=== PATIENT | female | born 1960 | race Caucasian/White ===

== ENCOUNTER 2016-10-23 12:43 | Outpatient (CLI) | payer OTHER ==
--- NOTE | 2016-10-23 14:20 | DIAGNOSTIC IMAGING REPORT ---
PROCEDURE: US COMPLETE PELVIC W/TRANSVAG INDICATION: POST MENOPAUSAL BLEEDING TECHNIQUE: Transabdominal and endovaginal moctezuma scale and color Doppler sonographic images of the female pelvis were obtained. COMPARISON: None. FINDINGS: TRANSABDOMINAL SCANS: Normal kidneys. Splenomegaly (16.5 cm). The uterus not well visualized. TRANSVAGINAL SCANS: Uterus measures 9 x 3.9 x 5.6 cm. Myometrium is unremarkable. Endometrium measures 10.7 mm. Ovaries not visualized. No adnexal mass or free fluid the cul-de-sac. IMPRESSION: 1. Thickened endometrium (10.7 mm) in a postmenopausal patient. This may represent blood, hyperplasia or neoplastic change. Recommend tissue biopsy. 3. Ovaries not visualized, likely due to atrophic changes 3. Splenomegaly 4. Results discussed with Dr. Allen
--- NOTE | 2016-10-23 14:23 | DIAGNOSTIC IMAGING REPORT ---
PROCEDURE: XR KNEE 4 VIEWS - LEFT INDICATION: PAIN IN LEFT KNEE TECHNIQUE: Four views. COMPARISON: None. FINDINGS: There is a 4 mm linear osseous density adjacent to the medial femoral condyle. There is an area of sclerosis in the left distal femoral metaphysis (1.5 cm) consistent with old infarct. The rest the osseous structures and joint spaces are normal. IMPRESSION: 1. There is a 4 mm osseous density adjacent medial femoral condyle which suggest old medial collateral ligament injury. 2. Otherwise negative left knee.
== END 2016-10-23 23:00 | disposition home or self-care (01) ==
LOC: XR SRH 12:43 → US SRH 12:43
DX: M25.562 Pain in left knee (principal); M89.9 Disorder of bone, unspecified; R93.8 Abnormal findings on diagnostic imaging of other specified body structures; R16.1 Splenomegaly, not elsewhere classified; Z78.0 Asymptomatic menopausal state

== ENCOUNTER 2016-11-02 05:47 | Emergency (ER) | payer OTHER ==
--- NOTE | 2016-11-02 06:40 | ED MAR SUMMARY ---
..... Medication Administration Record [facility] [address], [place] [id number] Patient: RAMYA PARADA Christopher Visit ID: [id number] 56y, F Weight: 113.3 kg Height/Length: 69 in BMI: 36.9 ALLERGIES: NKDA
--- NOTE | 2016-11-02 06:40 | ED MED RECONCILIATION SUMMARY ---
Patient: RAMYA PARADA Medication Reconciliation Report [facility] VisitID: [id number] [address] [place] [address] 56y, F Registration Date/Time: 11/02/2016 Weight: 113.3 kg Height/Length: 69 in. BMI: 36.9 ALLERGIES: NKDA The patient's Home Medications are listed below: THE FOLLOWING MEDICATIONS NEED TO BE RECONCILED: Cyclobenzaprine HCl Oral 10 mg, 3x a day Imitrex Oral Percocet Oral, daily, takes 6 tabs The source(s) of the original Home Medication information: Not obtained. The following Medications were given to the patient in the Emergency Department: None. The following Medications were prescribed to the patient: None.
--- NOTE | 2016-11-02 06:40 | ED MED RECONCILIATION SUMMARY ---
Patient: RAMYA PARADA Medication Reconciliation Report [facility] VisitID: [id number] [address] [place] [address] 56y, F Registration Date/Time: 11/02/2016 Weight: 113.3 kg Height/Length: 69 in. BMI: 36.9 ALLERGIES: NKDA The patient's Home Medications are listed below: THE FOLLOWING MEDICATIONS NEED TO BE RECONCILED: Cyclobenzaprine HCl Oral 10 mg, 3x a day Imitrex Oral Percocet Oral, daily, takes 6 tabs The source(s) of the original Home Medication information: Not obtained. The following Medications were given to the patient in the Emergency Department: None. The following Medications were prescribed to the patient: None.
--- NOTE | 2016-11-02 06:40 | ED MAR SUMMARY ---
..... Medication Administration Record [facility] [address], [place] [id number] Patient: RAMYA PARADA Christopher Visit ID: [id number] 56y, F Weight: 113.3 kg Height/Length: 69 in BMI: 36.9 ALLERGIES: NKDA
--- NOTE | 2016-11-02 06:40 | ED NURSING NOTES ---
Clinical Report - Nurses [facility] [address] [place] [address] 11/02/2016 5:48 Patient: RAMYA PARADA TRIAGE Triage time 0555. Acuity: LEVEL 3. Chief Complaint: ANXIETY. Alert. --06: Alia Robles 06:00 11/02/16. BP: 154/117. HR: 110. RR: 28. O2 saturation: 97%. --06: Alia Robles. Weight: 113.3 kg. Height/Length: 69 inches. BMI: 36.9. --06:00 Alia Robles. Medications Cyclobenzaprine HCl Oral 10 mg, 3x a day. Imitrex Oral, as needed. Percocet Oral, daily (takes 6 tabs). --06:02 Alia Robles. Allergies NKDA. --06:02 Aila Robles. History Arrived by private vehicle. Historian: patient. Unaccompanied. Onset. (unknown). ( Pt arrives crying, unable to speak full sentences, facial muscles are twitching, lips dry and cracked, attempting to understand cause of distress). Treatment VENEER LAYER: None. --06:26 Alia Robles. PROBLEMS: Migraine Headache. Non-Hodgkin's lymphoma (clinical). --06:03 Alia Robles. Interventions ID band on patient. To treatment room. --06:26 Alia Robles. NURSING PROGRESS NOTES ( Pt unwilling to co operate with assessment or talking further, pt made comments about "not being able to go through that again" referring to cancer treatment, also that " is mean, he tells me I'm fat, he kicks me out of the house and I sleep in the truck, he lies" when asked about children pt sts "they won't talk to me, they all hate me", pt refusing blood work and sts "it was just done 2 weeks ago", pt asking to just leave, I explained to pt that I couldn't let her drive like this, so pt asked to call her , pt was given cordless phone in pt room, was called, pt sts to him "they won't let me leave, aren't you coming, and why are you so mean", pt handed over phone to RN, 's voice has no distress in it, he sts he left her at 1130pm yesterday to go to a car show, he met up with friends he hadn't seen in a while and so didn't come home until 430 this morning, she was gone and came home about 530am" he sts she "has had this before" and sts he will come and get her, Provider is ok for her to leave with a ride. Pt waiting in room until arrives). --06:33 Alia Robles. DISPOSITION / DISCHARGE Departure time: 0640. ( here, pt ambulatory with to car). --06:39 Alia Robles. Locked/Released at 11/02/2016 6:40 by Alia Robles,
--- NOTE | 2016-11-02 06:40 | ED NURSING NOTES ---
Clinical Report - Nurses [facility] [address] [place] [address] 11/02/2016 5:48 Patient: RAMYA PARADA TRIAGE Triage time 0555. Acuity: LEVEL 3. Chief Complaint: ANXIETY. Alert. --06: Alia Robles 06:00 11/02/16. BP: 154/117. HR: 110. RR: 28. O2 saturation: 97%. --06: Alia Robles. Weight: 113.3 kg. Height/Length: 69 inches. BMI: 36.9. --06:00 Alia Robles. Medications Cyclobenzaprine HCl Oral 10 mg, 3x a day. Imitrex Oral, as needed. Percocet Oral, daily (takes 6 tabs). --06:02 Alia Robles. Allergies NKDA. --06:02 Alia Robles. History Arrived by private vehicle. Historian: patient. Unaccompanied. Onset. (unknown). ( Pt arrives crying, unable to speak full sentences, facial muscles are twitching, lips dry and cracked, attempting to understand cause of distress). Treatment BUILDING WRECKER: None. --06:26 Alia Robles. PROBLEMS: Migraine Headache. Non-Hodgkin's lymphoma (clinical). --06:03 Alia Robles. Interventions ID band on patient. To treatment room. --06:26 Alia Robles. NURSING PROGRESS NOTES ( Pt unwilling to co operate with assessment or talking further, pt made comments about "not being able to go through that again" referring to cancer treatment, also that " is mean, he tells me I'm fat, he kicks me out of the house and I sleep in the truck, he lies" when asked about children pt sts "they won't talk to me, they all hate me", pt refusing blood work and sts "it was just done 2 weeks ago", pt asking to just leave, I explained to pt that I couldn't let her drive like this, so pt asked to call her , pt was given cordless phone in pt room, was called, pt sts to him "they won't let me leave, aren't you coming, and why are you so mean", pt handed over phone to RN, 's voice has no distress in it, he sts he left her at 1130pm yesterday to go to a car show, he met up with friends he hadn't seen in a while and so didn't come home until 430 this morning, she was gone and came home about 530am" he sts she "has had this before" and sts he will come and get her, Provider is ok for her to leave with a ride. Pt waiting in room until arrives). --06:33 Alia Robles. DISPOSITION / DISCHARGE Departure time: 0640. ( here, pt ambulatory with to car). --06:39 Alia Robles. Locked/Released at 11/02/2016 6:40 by Alia Robles,
== END 2016-11-02 06:40 | disposition home or self-care (01) ==
LOC: ED SRH 05:47
DX: Z53.21 Procedure and treatment not carried out due to patient leaving prior to being seen by health care provider (principal)

== ENCOUNTER 2016-11-08 20:57 | Inpatient (IN) | payer OTHER ==
[~2016-11-08] VITALS: Ht 175.3 cm; Wt 134.7 kg
--- NOTE | 2016-11-08 22:29 | DIAGNOSTIC IMAGING REPORT ---
PROCEDURE: CT HEAD WITHOUT CONTRAST INDICATION: MENTAL STATUS CHANGE TECHNIQUE: Noncontrast axial images with sagittal and coronal reformations. COMPARISON: None. FINDINGS: Sulci, ventricular system, and brain parenchyma are normal. No evidence of acute intracranial process. Visualized mastoids and sinuses are clear. IMPRESSION: 1. Negative non-enhanced head CT. 2. Findings discussed with Dr. Moon at 10:27 p.m., [facility] Time
--- NOTE | 2016-11-08 22:31 | DIAGNOSTIC IMAGING REPORT ---
PROCEDURE: XR CHEST 1 VIEW INDICATION: SHORTNESS OF BREATH TECHNIQUE: Portable AP view 09:30 p.m. COMPARISON: None. FINDINGS: The patient is rotated. Poor inspiration but lungs are clear. Heart and mediastinum are normal. Mild levoscoliosis and moderate degenerative changes. IMPRESSION: 1. Poor inspiration but otherwise negative chest
--- NOTE | 2016-11-08 22:34 | ED CLINICAL REPORT ---
Clinical Report - Physicians/Mid Levels [facility] [address] [place] [address] 11/08/2016 20:57 Patient: RAMYA PARADA Time Seen: 21:00. Arrived- By ambulance. Historian- patient and EMS personnel. History limited by altered mental status and intoxication. Physical Exam limited by altered mental status and intoxication. HISTORY OF PRESENT ILLNESS Chief Complaint: CHANGED MENTAL STATUS. This started today and is still present. It was gradual in onset and has been waxing/waning. The patient is described as having decreased responsiveness. (Patient brought into ER by EMS. EMS report patient called for patient, EMS were not given a clear story. Patient has history of self harm, ingestion and Suicidal ideation. EMS were led to believe patient may have ingested her narcotics and benzodiazepine medications. Patient arrived into ED moaning and yelling out. Patient refuses to answer questions. RN's attempting to assist into gown and patient began to swinging at RN's and puling off lines, "You wont fucking take my clothes off". Patient yelling, " No one will help me!!"). No history of chronic dementia. She has had alcohol consumption recently (possible). History of recent drug use possible benzos. Dextro stick was not low prior to arrival. No weakness, numbness or recent fall. She has had difficulty walking. Usually is alert and oriented X3 and usually has normal mobility. Similar symptoms previously: Recent medical care: The patient was seen recently by a health care provider. ( Pt was here about 1 week ago for "anxiety", but left before being seen by an ED provider). REVIEW OF SYSTEMS No fever, headache, head injury, dizziness or chest pain. No difficulty breathing, cough, sputum production, blurred vision or sore throat. No abdominal pain, nausea, diarrhea, black stools or difficulty with urination. No skin rash, joint pain, vomiting, bloody stools or back pain. The patient has had abnormal bleeding. Pt denies any pain when asked. All systems otherwise negative, except as recorded above. PAST HISTORY ( Migraine Headache. Non-Hodgkin's lymphoma (clinical)). SOCIAL HISTORY Is a local resident. Marital status: . ADDITIONAL NOTES The nursing notes have been reviewed. PHYSICAL EXAM Vital Signs: 11/08/2016 21:02 BP: 146/67. HR: 117. RR: 22. O2 saturation: 98%. Temp: 98.9 F. Appearance: Alert. Lethargic. The patient's speech is slurred and the patient is agitated. Eyes: Pupils equal, round and reactive to light. Pupillary exam: Right pupil 3mm and round. Left pupil: 3mm and round. No nystagmus. ENT: Airway intact. (No evident oral abrasion or laceration, but there is a small amount of dried blood on the upper lip and gums). Neck: Normal inspection. Neck nontender. Neck supple. CVS: Tachycardia. Heart sounds normal. Pulses normal. Respiratory: No respiratory distress. Breath sounds normal. No rales, wheezes or rhonchi. Abdomen: Soft and nontender. Obese. Back: Normal inspection. No CVA tenderness. Skin: No cyanosis. Skin warm and dry. No pallor. (small (approx 3 cm diameter circular area) right thigh ecchymosis). No diaphoresis. Extremities: Extremities exhibit normal ROM. No lower extremity edema. Neuro: Altered mental status: hostile and combative. Eyes open spontaneously. Best verbal response: oriented X 3. Best motor response: obeys commands. (slurred speech). Alertness is decreased. Abnormal mood/affect or speech. No facial weakness. Finger-nose test abnormal. No motor deficit. No sensory deficit. LABS, X-RAYS, AND EKG EKG: EKG time: (21:22). Normal sinus rhythm. Rate: 100. Normal P waves. Normal BRITTANI. Normal QRS complex. Normal axis. Normal ST and T waves. The study has been interpreted contemporaneously by me. The EKG appears to be a good tracing. Rhythm Strip #1: Sinus tachycardia. Regular rhythm. Narrow QRS complexes. No ectopy. Chest X-ray: No acute disease. Normal lung markings present. Normal heart size. Mediastinum normal. Great vessels normal. No infiltrate. Views: AP (portable). Technique: poor inspiration. The X-rays were independently viewed by me, interpreted by the radiologist and discussed with the radiologist. Laboratory Tests: UA-Culture if indicated: (JV: 11/08/2016 21:35) ( [facility] 11/08/2016 21:56) Final results Test Result Flag Units (Reference) URINE COLOR YELLOW URINE APPEARANCE CLEAR URINE GLUCOSE 3+ (NEGATIVE) URINE BILIRUBIN NEGATIVE (NEGATIVE) URINE KETONE NEGATIVE (NEGATIVE) URINE SPECIFIC GRAVITY >= 1.030 (1.010-1.030) URINE PH 6.0 (5.0-8.0) URINE PROTEIN NEGATIVE (NEGATIVE) URINE UROBILINOGEN 0.2 EU/dL (0.2-1.0) URINE NITRITE NEGATIVE (NEGATIVE) URINE BLOOD TRACE-INTACT (NEGATIVE) URINE LEUK ESTERASE NEGATIVE (NEGATIVE) URINE RBC 0-1 rbc/hpf (0-1) URINE WBC NONE SEEN wbc/hpf (0-1) URINE EPITHELIAL CELLS 0-1 EPI/hpf (0-5) URINE BACTERIA NONE SEEN (NONE SEEN) URINE COMMENT CULT NOT INDICATED 1+ MUCUSURINE CULTURES ARE SET-UP BASED ON THE FOLLOWING CRITERIA:POSITIVE NITRITEPOSITIVE LEUKOCYTE ESTERASEGREATER THAN 10 WHITE BLOOD CELLSMODERATE (2+) OR GREATER BACTERIA CBC w Diff: (JV: 11/08/2016 21:16) ( [facility] 11/08/2016 21:36) Final results Test Result Flag Units (Reference) WHITE BLOOD COUNT 3.7 L K/uL (4.5-11.5) RED BLOOD COUNT 3.98 L M/uL (4.00-5.20) HEMOGLOBIN 12.2 gm/dL (12.0-16.0) HEMATOCRIT 37.5 % (36.0-46.0) MEAN CELL VOLUME 94 fL (80-100) MEAN CORPUSCULAR HGB 31 pg (26-34) MEAN CORPUSCULAR HGB CONC 33 g/dL (31-37) RED CELL DISTRIBUTION WIDTH 14.8 % (11.6-14.8) PLATELET COUNT 48 L K/uL (150-400) LYMPH % 44.8 H % (25-40) MONO % 2.1 L % (3-14) GRANULOCYTE % 53.1 (53-90) PT with INR: (JV: 11/08/2016 21:16) ( [facility] 11/08/2016 21:37) Final results Test Result Flag Units (Reference) INR 1.3 H (0.8-1.2) Low Intensity Therapy: INR 1.5-2.0 PT range 18.5-23.1Mod.Intensity Therapy: INR 2.0-3.0 PT range 23.1-31.5High Intensity Therapy: INR 2.5-3.5 PT range 27.4-35.5High Intensity Therapy 2: INR 3.0-4.0 PT range 31.5-39.3 Urine Drug Screen: (JV: 11/08/2016 21:35) ( [facility] 11/08/2016 22:06) Final results Test Result Flag Units (Reference) AMPHETAMINE/METHAMPHETAMINE NEGATIVE (NEGATIVE) BARBITURATE NEGATIVE (NEGATIVE) BENZODIAZEPINE POSITIVE H (NEGATIVE) CANNABINOID POSITIVE H (NEGATIVE) COCAINE NEGATIVE (NEGATIVE) ECSTASY NEGATIVE (NEGATIVE) METHADONE NEGATIVE (NEGATIVE) OPIATE POSITIVE H (NEGATIVE) The urine drug screen is a qualitative screening test fordrug overdose and abuse. All screen results should beconsidered as presumptive.Drugs screened for are as follows:BenzodiazepinesCocaineAmphetamines/MetamphetaminesTHC (Tetrahydrocannabinol)OpiatesBarbituratesEcstasyMethadonePositive results are unconfirmed. For confirmation, notifythe lab for the specimen to be sent to the reference lab.All confirmations must be performed by a differentmethodology.The ingestion of natural herbal and plant productscontaining Ephedra/Ephedra metabolites can produce in urineone or more substances capable of cross reacting withamphetamine/methamphetamine immunoassays. These testsprovide a preliminary result only. A more specificalternative chemical method must be used to obtain aconfirmed analytical result. Ammonia Level: (JV: 11/08/2016 21:16) ( [facility] 11/08/2016 21:50) Final results Test Result Flag Units (Reference) AMMONIA 64 H umol/L (11-32) Salicylate Level: (JV: 11/08/2016 21:16) ( MsgR[facility] 11/08/2016 21:38) Final results Test Result Flag Units (Reference) SALICYLATE <2.8 L mg/dL (2.8-20) CHEM 13 PANEL: (JV: 11/08/2016 21:16) ( MsgRcvd 11/08/2016 21:50) Final results Test Result Flag Units (Reference) GLUCOSE 186 H mg/dL (70-110) BUN 7 mg/dL (7-18) CREATININE 1.0 mg/dL (0.6-1.3) Estimated GFR >60 mL/min Estimated GFR- >60 mL/min Note: Persistent reduction over 3 months in eGFR<60 mL/min/1.73 m2 defines CKD. Patients with eGFR values>=60 mL/min/1.73 m2 may also have CKD if evidence ofpersistent proteinuria. Additional information may be foundat www.kidney.org. SODIUM 140 mmol/L (136-145) POTASSIUM 3.4 L mmol/L (3.5-5.1) CHLORIDE 107 mmol/L (98-107) CARBON DIOXIDE 28 mmol/L (21-32) CALCIUM 8.9 mg/dL (8.5-10.1) TOTAL PROTEIN 7.5 g/dL (6.4-8.2) ALBUMIN 3.0 L g/dL (3.3-5.0) BILIRUBIN, TOTAL 0.6 mg/dL (0.0-1.0) ALKALINE PHOSPHATASE 129 H U/L (46-116) AST (SGOT) 41 H U/L (15-37) ALT (SGPT) 36 U/L (12-78) MAGNESIUM 1.6 L mg/dL (1.8-2.4) LIPASE 684 H U/L (73-393) AMYLASE 42 U/L (25-115) CPK 186 U/L (24-260) TROPONIN I <0.05 ng/mL (0.00-1.5) TROPONIN REFERENCE RANGE:<0.1 NEGATIVE0.1-1.5 INDETERMINANT>1.5 POSITIVE ACETAMINOPHEN 15.6 ug/mL (10-30) ETHYL ALCOHOL <3 L mg/dL (3-10) THYROID STIMULATING HORMONE 6.139 H uIU/mL (0.30-3.74) . Pulse Oximetry: 11/08/2016 21:02 O2 saturation: 98%. (FIO2 - room air). Interpretation: normal. PROGRESS AND PROCEDURES Course of Care: Patient is stable. Physical exam findings are improved. Symptoms better. Discussed case with patient's primary care provider, (Tiffany call placed 22:30). Reviewed test results. Agreed upon treatment plan. Health care provider will see patient in hospital. Patient/family counseled. Old ED records reviewed. Disposition: Observation in the Critical Care Unit. Condition: guarded. CLINICAL IMPRESSION Acute mental status change with lethargy and confusion. Intentional multi-drug overdose with alprazolam and oxycodone. Substance abuse- marijuana. Acquired hypothyroidism. Hypokalemia (mild). Severe primary idiopathic thrombocytopenia. Possible Hodgkin's lymphoma. Elevated lipase - possible pancreatitis Elevated ammonia level - rule out liver disease Elevated PT / INR - rule out liver disease. (Electronically signed by Eulogio Moon DO 11/09/2016 2:24)
--- NOTE | 2016-11-08 22:34 | ED ORDER SUMMARY ---
..... Patient: RAMYA PARADA OrderSheet [facility] VisitID: [id number] [place] [address] 56y, F Registration Date/Time: 11/08/2016 ORDER SHEET Weight: 132.4 kg (measured) Allergies: NKDA GENERAL ORDERS: Chest 1V Urgent (21:03 11/08/2016 PHutchinson DO) (Ack 21:17 AMcQuoid ER Tech1) (21:30 AMcQuoid ER Tech1) Operations Developer (Continuous) (21:03 11/08/2016 PHutchinson DO) (Ack 21:17 AMcQuoid ER Tech1) (21:21 HSoule) Ammonia Level Urgent (21:04 11/08/2016 PHutchinson DO) (Ack 21:17 AMcQuoid ER Tech1) (21:20 AMcQuoid ER Tech1) Cardiac Panel Stat (21:04 11/08/2016 PHutchinson DO) (Ack 21:17 AMcQuoid ER Tech1) (21:20 AMcQuoid ER Tech1) Ethyl Alcohol Urgent (21:04 11/08/2016 PHutchinson DO) (Ack 21:17 AMcQuoid ER Tech1) (21:20 AMcQuoid ER Tech1) UA-Culture if indicated Urgent (21:04 11/08/2016 PHutchinson DO) (Ack 21:17 AMcQuoid ER Tech1) (22:26 HSoule) Urine Drug Screen Urgent (21:04 11/08/2016 PHutchinson DO) (Ack 21:17 AMcQuoid ER Tech1) (22:26 HSoule) Amylase Urgent (21:04 11/08/2016 PHutchinson DO) (Ack 21:17 AMcQuoid ER Tech1) (21:20 AMcQuoid ER Tech1) Lipase Urgent (21:04 11/08/2016 PHutchinson DO) (Ack 21:17 AMcQuoid ER Tech1) (21:20 AMcQuoid ER Tech1) TSH Urgent (21:04 11/08/2016 PHutchinson DO) (Ack 21:17 AMcQuoid ER Tech1) (21:20 AMcQuoid ER Tech1) PT with INR Urgent (21:04 [facility]/2016 [facility] (Ack 21:17 AMcQuoid ER Tech1) (21:20 AMcQuoid ER Tech1) Acetaminophen Level Urgent (21:04 11/08/2016 [facility] DO) (Ack 21:17 AMcQuoid ER Tech1) (21:20 AMcQuoid ER Tech1) Salicylate Level Urgent (21:04 11/08/2016 [facility] DO) (Ack 21:17 AMcQuoid ER Tech1) (21:20 AMcQuoid ER Tech1) Pulse oximeter (21:04 11/08/2016 [facility] DO) (Ack 21:17 AMcQuoid ER Tech1) (21:21 HSoule) EKG - ER Stat (21:04 11/08/2016 [facility]) (Ack 21:17 AMcQuoid ER Tech1) (21:23 HSoule) POC Glucose (21:04 11/08/2016 [facility]) (Ack 21:17 AMcQuoid ER Tech1) (22:26 HSoule) NPO (21:04 11/08/2016 [facility] DO) (Ack 21:17 AMcQuoid ER Tech1) (21:21 HSoule) CT Head wo Cont (plt 48 K) Urgent (21:50 11/08/2016 [facility]) (Ack 21:58 AMcQuoid ER Tech1) (22:20 RFay) Call (Place call to): (Dr Allen) (22:28 11/08/2016 [facility]) (22:33 AMcQuoid ER Tech1) MEDICATION ORDERS: IV FLUIDS: IV NS : initial bolus 1000 mL (1000 mL/hr), then 250 mL/hr for X4 (NOW) (21:03 11/08/2016 [facility]) (Ack 21:37 HSoule) (21:46 HSoule) ORDER SHEET NOTES: [Electronically signed by Lorrie Zee (00:38 11/09/2016)] [Electronically signed by Eulogio Moon DO (02:24 11/09/2016)] [Electronically locked/signed by Lorrie eZe (00:38 11/09/2016)]
--- NOTE | 2016-11-08 22:34 | ED ORDER SUMMARY ---
..... Patient: RAMYA PARADA OrderSheet [facility] VisitID: [id number] [place] [address] 56y, F Registration Date/Time: 11/08/2016 ORDER SHEET Weight: 132.4 kg (measured) Allergies: NKDA GENERAL ORDERS: Chest 1V Urgent (21:03 11/08/2016 PHutchinson DO) (Ack 21:17 AMcQuoid ER Tech1) (21:30 AMcQuoid ER Tech1) Fitting Room Attendant (Continuous) (21:03 11/08/2016 PHutchinson DO) (Ack 21:17 AMcQuoid ER Tech1) (21:21 HSoule) Ammonia Level Urgent (21:04 11/08/2016 PHutchinson DO) (Ack 21:17 AMcQuoid ER Tech1) (21:20 AMcQuoid ER Tech1) Cardiac Panel Stat (21:04 11/08/2016 PHutchinson DO) (Ack 21:17 AMcQuoid ER Tech1) (21:20 AMcQuoid ER Tech1) Ethyl Alcohol Urgent (21:04 11/08/2016 PHutchinson DO) (Ack 21:17 AMcQuoid ER Tech1) (21:20 AMcQuoid ER Tech1) UA-Culture if indicated Urgent (21:04 11/08/2016 PHutchinson DO) (Ack 21:17 AMcQuoid ER Tech1) (22:26 HSoule) Urine Drug Screen Urgent (21:04 11/08/2016 PHutchinson DO) (Ack 21:17 AMcQuoid ER Tech1) (22:26 HSoule) Amylase Urgent (21:04 11/08/2016 PHutchinson DO) (Ack 21:17 AMcQuoid ER Tech1) (21:20 AMcQuoid ER Tech1) Lipase Urgent (21:04 11/08/2016 PHutchinson DO) (Ack 21:17 AMcQuoid ER Tech1) (21:20 AMcQuoid ER Tech1) TSH Urgent (21:04 11/08/2016 PHutchinson DO) (Ack 21:17 AMcQuoid ER Tech1) (21:20 AMcQuoid ER Tech1) PT with INR Urgent (21:04 [facility]/08/2016 [facility] (Ack 21:17 AMcQuoid ER Tech1) (21:20 AMcQuoid ER Tech1) Acetaminophen Level Urgent (21:04 11/08/2016 [facility] DO) (Ack 21:17 AMcQuoid ER Tech1) (21:20 AMcQuoid ER Tech1) Salicylate Level Urgent (21:04 11/08/2016 [facility] DO) (Ack 21:17 AMcQuoid ER Tech1) (21:20 AMcQuoid ER Tech1) Pulse oximeter (21:04 11/08/2016 [facility] DO) (Ack 21:17 AMcQuoid ER Tech1) (21:21 HSoule) EKG - ER Stat (21:04 11/08/2016 [facility]) (Ack 21:17 AMcQuoid ER Tech1) (21:23 HSoule) POC Glucose (21:04 11/08/2016 [facility]) (Ack 21:17 AMcQuoid ER Tech1) (22:26 HSoule) NPO (21:04 11/08/2016 [facility] DO) (Ack 21:17 AMcQuoid ER Tech1) (21:21 HSoule) CT Head wo Cont (plt 48 K) Urgent (21:50 11/08/2016 [facility]) (Ack 21:58 AMcQuoid ER Tech1) (22:20 RFay) Call (Place call to): (Dr Allen) (22:28 11/08/2016 [facility]) (22:33 AMcQuoid ER Tech1) MEDICATION ORDERS: IV FLUIDS: IV NS : initial bolus 1000 mL (1000 mL/hr), then 250 mL/hr for X4 (NOW) (21:03 11/08/2016 [facility]) (Ack 21:37 HSoule) (21:46 HSoule) ORDER SHEET NOTES: [Electronically signed by Lorrie Zee (00:38 11/09/2016)] [Electronically signed by Eulogio Moon DO (02:24 11/09/2016)] [Electronically locked/signed by Lorrie Zee (00:38 11/09/2016)]
--- NOTE | 2016-11-08 22:34 | ED NURSING NOTES ---
Clinical Report - Nurses [facility] [address] [place] [address] 11/08/2016 20:57 Patient: RAMYA PARADA TRIAGE Triage time 21:Nov 08 2016. Acuity: LEVEL 2. Chief Complaint: (Possible ingestion). SEPSIS SCREEN: Sepsis Screen: negative. Negative (no infection suspected/documented). LARS COMA SCORE: Lars Coma Scale: 11- eyes open to voice (3); best verbal response- inappropriate speech (3); best motor response- localizes to pain (5). --21:14 Lorrie Zee 21:02 11/08/16. BP: 146/67. HR: 117. RR: 22. O2 saturation: 98%. Temp: 98.9 F (oral). Pain level now unable to obtain: unknown. --21:14 Lorrie Zee. Height/Length: 68 inches Estimated. --21:11 Lorrie Zee. Weight: 132.4 kg measured. BMI: 44.4. --21:13 Lorrie Zee. Medications Cyclobenzaprine HCl Oral 10 mg, 3x a day. Imitrex Oral, as needed. Percocet Oral, daily (takes 6 tabs). --21:14 Lorrie Zee Xanax Oral. --23:15 Lorrie Zee. Medication/allergy information source: the patient. --21:14 Lorrie Zee. Allergies NKDA. --21:14 Lorrie Zee. History Arrived by EMS. Historian: EMS. Unaccompanied. ( Patient brought into ER by EMS. EMS report patient called for patient, EMS were not given a clear story. Patient has history of self harm, ingestion and Suicidal ideation. EMS were led to believe patient may have ingested her narcotics and benzodiazepine medications. Patient arrived into ED moaning and yelling out. Patient refuses to answer questions. RN's attempting to assist into gown and patient began to swinging at RN's and puling off lines, "You wont fucking take my clothes off". Patient yelling, " No one will help me!!"). PAST MEDICAL HX: Immunizations: status is unknown. Last normal menstrual period unknown. SOCIAL HX: Smoker - current status unknown. Alcohol use. (Unknown, patient will no answer questions). History of drug use. (Unknown). No infectious disease exposure. FALL RISK ASSESSMENT: Fall risk assessment completed. No fall risk identified. NUTRITIONAL RISK ASSESSMENT: The nutritional risk assessment revealed no deficiencies. FUNCTIONAL ASSESSMENT: Functional assessment: no impairments noted. LEARNING NEEDS ASSESSMENT: The learning needs assessment revealed no barriers. ABUSE ASSESSMENT: Abuse assessment: unable to obtain. SKIN INTEGRITY ASSESSMENT: Skin integrity risk assessment completed. No skin integrity risk identified. --21:14 Lorrie Zee. PROBLEMS: Migraine Headache. Non-Hodgkin's lymphoma (clinical). --21:14 Lorrie Zee. ADDITIONAL SURGERIES: Unknown . --21:14 Lorrie Zee. Interventions ID band on patient. To treatment room. --21:14 Lorrie Zee. PHYSICAL ASSESSMENT To room via stretcher. Patient gowned. GENERAL / NEURO / PSYCH: Appears in distress. Patient is uncommunicative and appears bizarre. Altered mental status: combative. Patient's speech is repetitive. HEENT: ( small area of old blood noted in patients mouth). RESPIRATORY: Respirations not labored. CVS: Cardiac rhythm: sinus tachycardia; (110). SKIN: Skin is warm and dry. --21:16 Lorrie Zee. NURSING PROGRESS NOTES nuclear monitoring technician, pulse oximeter and NIBP monitor placed on patient; monitor alarms on. Patient gowned. Reassurance given to the patient. Suicide precautions initiated: a safety sweep of the room has been completed. Room made safe. Continuous one on one supervision. Patient placed in direct sight of the nurse's station. Restraints applied and see restraint documentation. ED Physician has been notified. Two patient identifiers checked. Call light placed in reach. Side rails up x 1. Bed placed in lowest position. Brakes of bed on. Patient ready for evaluation- chart flagged and ED physician notified. --21:16 Lorrie Zee ( Provider at bedside, patient restrained. Please see paper flow sheet for restraint documentation.). --21:17 Lorrie Zee 21:17 11/08/2016 Site #1 started via IV in the left hand with an 20g angiocath, with aseptic technique and good blood return; one attempt. Blood drawn: rainbow set. Labeled in the presence of the patient and sent to the lab. Saline lock flushed with 10 mL saline. --21:17 Lorrie Zee EKG time: (:Nov 08 2016). EKG was performed by a tech and shown to the ED physician. --21:20 Lorrie Zee Patient ID band checked for patient name and birthdate: patient confirmed. Blood samples drawn from the left hand peripheral IV site by nurse ; labeled in presence of the patient and sent to lab: rainbow set. Additional blood sent to lab. Line flushed with 10 mL normal saline post blood draw. --21:21 Lorrie Zee 14 fr blood catheter. Reason for indwelling catheter: patient's decreased level of consciousness. During procedure hand hygiene observed and sterile equipment and aseptic technique used. Return of 200 mL yellow-colored clear urine; attached to bedside drainage bag positioned below the bladder and secured with velcro. She tolerated procedure well. --21:42 Lorrie Zee 21:46 11/08/2016 Started bag #1 1000 mL IV Fluids IV NS (Saline); at 1000 mL/hr over 1 hour(s) via site #1 via IV pump. Allergies verified and confirmed 5 rights. IV patency established. IV site checked: no pain, redness, or swelling. IV flushed thoroughly pre- and post-medication administration. --21:46 Lorrie Zee ( Patient at bedside. Patient reports that they had an argument and the patient threatened to take a bunch of her pills. Patient states she became upset and he was not sure if she took her pills or not. Patient at bedside trying to comfort patient.). --21:52 Lorrie Zee ( Patient jewelry removed and given to . Patient states, "This nurse is a bitch! She is taking my jewelry and will not give it back!". RN gave four rings, two sets of earrings, necklace, and one watch. Patient updated on plan of care.). --22:04 Tiffany Zeeh 22:04 11/08/16. BP: 144/60. HR: 109. RR: 18. O2 saturation: 98% on room air. --22:04 Lorrie Zee Patient transported to CT by stretcher with nurse and tech. (22:Nov 08 2016). --22:19 Lorrie Zee Patient returned from CT by stretcher with nurse and tech. (:Nov 08 2016). --22:19 Lorrie Zee ( Patient released from restraints, patient calming down and able to follow commands. Patient agreeable to refrain from hitting staff or pulling at her IV and catheter). --22:20 Lorrie Zee 22:24 11/08/16. BP: 146/81. HR: 108. RR: 20. O2 saturation: 99% on room air. --22:25 Lorrie Zee Monitoring of patient in place. Reassurance given to the patient. ( Patient tearful and moaning, stating she has no one who cares. Patient at bedside.). --22:46 Lorrie Zee 22:45 11/08/16. BP: 150/90. HR: 94. RR: 20. O2 saturation: 95%. --22:46 Lorrie Zee Telemetry strip posted to chart. --22:54 McQuoid, Cally, ER Tech1 23:36 11/08/2016 Site #[address] upon admission; patent, no pain and no signs of infection or infiltration. Converted to saline lock and flushed with 10 mL saline; flushes easily. --00:36 Lorrie Zee 23:36 11/09/2016 IV Fluids IV NS Discontinued: bag #1 completed. Total amount infused: 1000 mL. IV patency established. IV site checked: no pain, redness, or swelling. IV flushed thoroughly. --00:36 Lorrie Zee. Restraint Flowsheet 21:10 11/08/16. Initial restraint assessment. She has demonstrated violent behavior including imminent risk of harm to others that requires restraints. Alternatives to restraints have been attempted via modifications to environment, reality orientation by frequent reminding and comfort measures. Alternative to restraints failed: patient inability to follow directions and remains agitated. Applied left wrist restraints and right and left ankle restraints anchored to the stretcher base. Observed by a nurse. Assessment: airway- patent and respirations are equal and unlabored; circulation- capillary refill is less than 2 seconds and pulses palpable; mental status- patient is agitated; skin- intact, warm and color is within normal limits; indwelling lines / tubes- performing without impedence of flow; behavior is violent. Restraints are properly applied. --21:23 Lorrie Zee Subsequent restraint assessment. Interventions: musculoskeletal- restraints released; emotional support offered. She no longer exhibits behavior requiring restraint and restraints have been removed. --22:21 Lorrie Zee. DISPOSITION / DISCHARGE 23:45 Nov 09 2016 Nov 09 2016. Condition at departure: stable. The goals identified in the patient's plan of care were met. Disposition: observation in the Critical Care Unit. Transported via stretcher by nurse with monitor and O2. Report was given to a nurse via a phone call. Report included patient's care, treatment, medications, reviewed medication reconcilliation, and condition (including any recent changes or anticipated changes). All questions were answered. Report was acknowledged and care was transferred. (Bernadette RICKS). Bed obtained. Patient's personal items include, All patient property given to spouse including clothing and jewlery. --00:27 Lorrie Zee 00:24 11/09/16. BP: 155/80. HR: 110. RR: 16. O2 saturation: 95% on nasal cannula at 2 liters/minute. Pain level now unable to obtain. --00:27 Lorrie Zee. Locked/Released at 11/09/2016 0:38 by Lorrie Zee,
[2016-11-08 23:49] VITALS: BP 135/80
[2016-11-09] VITALS (12 sets, daily range): BP systolic 107–159; BP diastolic 48–82
--- NOTE | 2016-11-09 02:25 | ED MAR SUMMARY ---
..... Medication Administration Record [facility] [address] [place] [address] Patient: RAMYA PARADA Visit ID: [id number] 56y, F Weight: 132.4 kg Height/Length: 68 in BMI: 44.4 ALLERGIES: NKDA Start 21:46 11/08/2016 Lorrie Zee,, Stop 23:36 11/09/2016 Lorrie Zee, Medication Administered: IV NS (SALINE), Dose: IV Fluids over 1 hour(s), Rate: 1000 mL/hr, Dispensed: 1000 mL bag, Site: #1 left hand. Medication Ordered: IV NS : initial bolus 1000 mL (1000 mL/hr), then 250 mL/hr for X4 (NOW).
--- NOTE | 2016-11-09 02:25 | ED MED RECONCILIATION SUMMARY ---
Patient: TALMARITO ALVAREZLuly White Medication Reconciliation Report [facility] VisitID: [id number] [address] [place] [address] 56y, F Registration Date/Time: 11/08/2016 Weight: 132.4 kg Height/Length: 68 in. BMI: 44.4 ALLERGIES: NKDA The patient's Home Medications are listed below: THE FOLLOWING MEDICATIONS NEED TO BE RECONCILED: Cyclobenzaprine HCl Oral 10 mg, 3x a day Imitrex Oral Percocet Oral, daily, takes 6 tabs Xanax Oral The source(s) of the original Home Medication information: patient The following Medications were given to the patient in the Emergency Department: IV NS IV Fluids bolus 0, then 1000 mL/hr, administered: 11/08/2016 9:46:00 PM The following Medications were prescribed to the patient: None.
--- NOTE | 2016-11-09 02:25 | ED DISCHARGE INSTRUCTIONS ---
Patient: RAMYA PARADA General Instructions [facility] VisitID: [id number] [address] [place] [address] 56y, F Registration Date/Time: 11/08/2016 Acute mental status change with lethargy and confusion. Intentional multi-drug overdose with alprazolam and oxycodone. Substance abuse- marijuana. Acquired hypothyroidism. Hypokalemia (mild). Severe primary idiopathic thrombocytopenia. (Electronically signed by Eulogio Moon DO 11/09/2016 2:24)
--- NOTE | 2016-11-09 02:25 | ED MAR SUMMARY ---
..... Medication Administration Record [facility] [address] [place] [address] Patient: RAMYA PARADA Visit ID: [id number] 56y, F Weight: 132.4 kg Height/Length: 68 in BMI: 44.4 ALLERGIES: NKDA Start 21:46 11/08/2016 Lorrie Zee,, Stop 23:36 11/09/2016 Lorrie Zee, Medication Administered: IV NS (SALINE), Dose: IV Fluids over 1 hour(s), Rate: 1000 mL/hr, Dispensed: 1000 mL bag, Site: #1 left hand. Medication Ordered: IV NS : initial bolus 1000 mL (1000 mL/hr), then 250 mL/hr for X4 (NOW).
--- NOTE | 2016-11-09 02:25 | ED MED RECONCILIATION SUMMARY ---
Patient: TALMARITO ALVAREZLuly White Medication Reconciliation Report [facility] VisitID: [id number] [address] [place] [address] 56y, F Registration Date/Time: 11/08/2016 Weight: 132.4 kg Height/Length: 68 in. BMI: 44.4 ALLERGIES: NKDA The patient's Home Medications are listed below: THE FOLLOWING MEDICATIONS NEED TO BE RECONCILED: Cyclobenzaprine HCl Oral 10 mg, 3x a day Imitrex Oral Percocet Oral, daily, takes 6 tabs Xanax Oral The source(s) of the original Home Medication information: patient The following Medications were given to the patient in the Emergency Department: IV NS IV Fluids bolus 0, then 1000 mL/hr, administered: 11/08/2016 9:46:00 PM The following Medications were prescribed to the patient: None.
--- NOTE | 2016-11-09 02:25 | ED DISCHARGE INSTRUCTIONS ---
Patient: RAMYA PARADA General Instructions [facility] VisitID: [id number] [address] [place] [address] 56y, F Registration Date/Time: 11/08/2016 Acute mental status change with lethargy and confusion. Intentional multi-drug overdose with alprazolam and oxycodone. Substance abuse- marijuana. Acquired hypothyroidism. Hypokalemia (mild). Severe primary idiopathic thrombocytopenia. (Electronically signed by Eulogio Moon DO 11/09/2016 2:24)
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
[2016-11-09] MEDS ORDERED: CYCLOBENZAPRINE10 MG PO (07:29)
[2016-11-09] MEDS ORDERED: IMITREX25 MG PO (07:31)
[2016-11-09] MEDS ORDERED: PERCOCET1 TA1 PO (07:34)
[2016-11-09] MEDS ORDERED: XANAX0.5 MG PO (07:35)
[2016-11-09] MEDS ORDERED: ABILIFY5 MG PO (07:36)
[2016-11-10 04:27] VITALS: BP 119/71
[2016-11-10 07:22] VITALS: BP 113/57
[2016-11-10] MEDS ORDERED: ARIPIPRAZOLE5 MG PO (08:23)
[2016-11-10] MEDS ORDERED: NYSTATIN100000 M2 TOP (08:26)
[2016-11-10] MEDS ORDERED: METFORMIN HCL500 MG PO (08:30)
--- NOTE | 2016-11-10 08:42 | Provider's Discharge Care Plan ---
Problem, Goal, Plan Problem List 1. Overdose of benzodiazepine Goals: Improve disease control, Improve function, Improved health/wellness Instructions: Follow up as directed, Increase activity level, Take meds as directed, Avoid processed foods, Take alprazolam and oxycodone/APAP and cyclobenzaprine exactly as prescribed. No extra doses. 2. Opiate overdose Goals: Improve disease control, Improve function, Improved health/wellness, Increase independence Instructions: Follow up as directed, Increase activity level, Take meds as directed, Take meds exactly as prescribed. No extras. 3. Depression Goals: Improve disease control, Improve function, Improved health/wellness, Increase independence Instructions: Increase activity level, Take meds as directed, Reduce stress, Take aripiprazloe 5 mg every am. 4. Yeast infection involving the vagina and surrounding area Goals: Improve disease control, Improve function, Improved health/wellness, Increase independence Instructions: Follow up as directed, Increase activity level, Take meds as directed, Use nystratin cream on perineal area am and bedtime. 5. Type 2 diabetes mellitus, uncontrolled Goals: Improve disease control, Improve function, Improved health/wellness, Increase independence Instructions: Follow up as directed, Increase activity level, Take meds as directed, Follow consistent carbohydrate diet. Work on weight reduction. Begin metformin 500 my every evening at supper starting 11/12/16 6. Lumbar disc disease Goals: Improve disease control, Improve function, Improved health/wellness Instructions: Follow up as directed, Increase activity level, Take meds as directed, Reduce stress, don not take extra medicine 7. Arthritis of left knee Goals: Improve disease control, Improve function, Improved health/wellness Instructions: Follow up as directed, Increase activity level, Take meds as directed, Do not take extra medicine. If pain is continuing, we will arrange for MRI scan of knee.
[2016-11-10 10:09] VITALS: BP 128/66
--- NOTE | 2016-11-10 14:13 | DIAGNOSTIC IMAGING REPORT ---
PROCEDURE: CT ABD/PELVIS WITH CONTRAST CLINICAL INDICATION: elevated lipase and ammonia level, check pancreas, liver TECHNIQUE: 140 ml of Isovue 300 were injected intravenously and axial images were obtained of the entire abdomen and pelvis with sagittal and coronal reformations. COMPARISON: None. FINDINGS: ABDOMEN: Lung base are clear. Normal heart size. Small calcified gallstones. Liver measures 17 cm with a nodular contour. Spleen measures 18 cm. Patent portal vein. Small left upper quadrant varices. Pancreas, adrenal glands and the kidneys are unremarkable. Minor atherosclerosis of the aorta. Mild ascending colon wall thickening which may be due to decompression. Small hiatal hernia. PELVIS: Normal appendix. Normal uterus and bladder. Right pelvic hypodensity suggests a small amount of free fluid in the pelvis but underlying adnexal cyst is a consideration. No pelvic mass or inflammatory changes. Mild degenerative changes of the spine. IMPRESSION: 1. Cirrhosis with splenomegaly and small varices 2. Cholelithiasis. 3. Wall thickening of the ascending colon, probably due to decompression. Colitis is less likely. Correlate clinically 4. Small hiatal hernia 5. Small amount of free fluid the pelvis. Cannot exclude underlying right ovarian cyst. Consider pelvic ultrasound. 6. Results discussed with Dr. Allen All CT scans at this facility use dose modulation, iterative reconstruction, and/or weight-based dosing when appropriate to reduce radiation dose to as low as reasonably achievable.
--- NOTE | 2016-11-16 01:58 | DISCHARGE SUMMARY ---
ADMIT DATE: 11/09/2016 DISCHARGE DATE: 11/10/2016 ADMITTING DIAGNOSIS: 1. Respiratory depression with hypoxia 2. Question of suicidal drug overdose DISCHARGE DIAGNOSES: 1. Respiratory depression and hypoxemia secondary to inadvertent extra doses of cyclobenzaprine 2. Other significant problems include marked marital relationship difficulties and stress 3. Chronic anxiety disorder. 4. Chronic mild depression. 5. New significant medical problems include new diagnosis of adult-onset diabetes 6. Leukopenia 7. Thrombocytopenia 8. Mild pancreatitis 9. Recent abnormal vaginal bleeding with a recent diagnosis, by pelvic ultrasound, of endometrial hyperplasia 10. Other acute or new problems include new diagnosis of liver cirrhosis, not alcohol-related 11. Associated splenomegaly 12. Early small esophageal varices 13. Cholelithiasis 14. Chronic stable problems include longstanding lumbar disk disease 15. Chronic pain associated with this 16. 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 Morbid obesity PROCEDURE PERFORMED: 1. None. BRIEF HISTORY: Please see the dictated history and physical exam for details concerning admission. HOSPITAL COURSE: The patient is a 56-year-old white female who I have followed for quite some time, who has had a very difficult relationship with her for many years and apparently she became somewhat distraught and angry and retired to her bedroom in the early evening. She allegedly took some of her pain medication and muscle relaxant medication for back pain and anxiety and muscle spasm. She became quite lethargic as the evening progressed and reached to the point where she was having difficulty breathing and was not arousable and not answering questions appropriately. Her called 911 and she was transported to [facility] Emergency Department. She was quite confused and combative and then hypersomnolent. She initially had somewhat low oxygen saturations but these were able to be maintained with supplemental nasal oxygen with oxygen saturations in the low 90s with this. She was not obstructing her airway and was felt to require admission. She had a stable chest x-ray on admission and a brain CT scan, which was okay and showed no evidence of stroke or other abnormality. She was noted to be thrombocytopenic and leukocytopenic and to have an elevated lipase level and elevated blood sugar on her admission. She was admitted to the intensive care unit and observed carefully and received fluid intravenously for maintaining hydration and to improve urine flow. She improved and the following morning was able to be fairly conversant, oriented and appropriate. She was noted to have persistent abnormalities of her blood tests with a low white blood cell count, low platelet count, elevated alkaline phosphatase and elevated lipase. She also had a slightly elevated thyroid stimulating hormone. She was evaluated by the mental health practitioner and was felt to be at risk for inadvertent medication overdose, but was not felt to be a suicidal risk. She was not felt to require inpatient admission to the psychiatric facility. She was started on Abilify to help with depression and anxiety. She had not responded well to quite a number of other antidepressant medications given to her over the years. Due to her multiple chemical abnormalities, anxiety and depression state, she was continued in the hospital. She had an abdominal CT scan done the following morning as well as a check of hemoglobin A1c, which was quite elevated at 9.5. The abdominal CT scan showed that she had the appearance of a liver indicating cirrhosis. There was also splenomegaly and early dilation of the esophageal veins. The pancreas was okay. She showed evidence of cholelithiasis without evidence of cholecystitis. She was able to begin eating a diet consistent of carbohydrate type. She reviewed an appropriate consistent carbohydrate diet with the dietitian. I discussed with the patient's the new diagnoses of adult-onset diabetes and advised of the other problems that needed further evaluation. She was quite anxious to go home, provided there was no specific treatment that absolutely required hospitalization. This was the case and she was felt to be stable for discharge and was discharged home with her in the afternoon of 11/10/2016. DISCHARGE INSTRUCTIONS/MEDICATIONS: Disposition: Home. Medications will include the addition of aripiprazole 5 mg strength 1 daily. She will also use Nystatin cream on the perineal area twice daily to treat a low grade skin irritation felt to be likely due to [place]. She will be started on metformin 500 mg 1 in the evening, starting . She will continue her other usual medications including cyclobenzaprine 10 mg strength 1 p.o. t.i.d. Sumatriptan 100 mg 1 as needed for migraine headaches. Oxycodone 10/APAP 325 one half or 1 tablet every 4 to 6 hours for severe pain. Alprazolam 0.5 mg 1 p.o. 3- 4 times daily for anxiety. She will need to follow up at the office for continued evaluation of her problems of thrombocytopenia and leukopenia which may be related to her chronic liver disease. She also needs evaluation of her cirrhosis problem and may need to have a liver biopsy done following a referral to one of the gastroenterologists. She would benefit from seeing one of the hematologists to have an opinion regarding the problem of leukocytosis and thrombocytopenia to see if the electrician supervisor substation feels that this is due to the chronic liver disease or if it is due to other problems. She does have underlying endometrial hyperplasia and does need to have an endometrial biopsy done at some point. She will proceed with the other testing first and see if her platelet count improves. She is started on Abilify for help with her depression problems as a new medication for her and hopefully this will be helpful. If she has any difficulties taking this or if the medicine is not covered by her insurance plan, she will call. Followup will be in my office in 7-10 days.
== END 2016-11-10 15:00 | disposition home or self-care (01) | DRG 812 ==
LOC: ED SRH 20:57 → TRANS SRH 22:32 → CC SRH 23:43
PROVIDERS: ADMIT Emergency Medicine
PROC: 0T9B70Z Drainage of Bladder with Drainage Device, Via Natural or Artificial Opening (ICD-10-PCS; principal; 2016-11-08)
DX: T48.1X1A Poisoning by skeletal muscle relaxants [neuromuscular blocking agents], accidental (unintentional), initial encounter (principal); R09.02 Hypoxemia; R40.0 Somnolence; E11.65 Type 2 diabetes mellitus with hyperglycemia; K85.90 Acute pancreatitis without necrosis or infection, unspecified; E87.6 Hypokalemia; K74.60 Unspecified cirrhosis of liver; I85.10 Secondary esophageal varices without bleeding; D69.59 Other secondary thrombocytopenia; D72.819 Decreased white blood cell count, unspecified; E03.9 Hypothyroidism, unspecified; F12.10 Cannabis abuse, uncomplicated; E66.01 Morbid (severe) obesity due to excess calories; Z68.41 Body mass index [BMI] 40.0-44.9, adult; Z78.1 Physical restraint status; Z63.0 Problems in relationship with spouse or partner
CPT/HCPCS: 29244; 29250; 29253; 81240; 90004; 90047; 90074; 90100; 90616; 90648; 91023; 91286; 91588; 92010; 92132; 92235; 92530; 92610; 92710; 92720; 92760; 92761; 92762; 92763; 92764; 92765; 92766; 92767; 92780; 93140; 94060; 95059; 97000